=== PATIENT | female | born 1985 | race Caucasian/White ===

== ENCOUNTER 2018-11-01 23:18 | Inpatient (IN) | payer OTHER ==
[~2018-11-01] VITALS: Ht 165.1 cm; Wt 98.0 kg
[2018-11-02] MEDS ORDERED: MORPHINE SULFATE 10 MG/ML CPJ IM ONE (00:15)
[2018-11-02] MEDS ORDERED: KETOROLAC 60MG/2ML VIAL IM ONE (00:15)
[2018-11-02] MEDS ORDERED: HYDROMORPHONE HCL/PF 2MG/ML CPJ IM ONE (02:15)
[2018-11-02] MEDS ORDERED: ONDANSETRON 4MG ODT PO ONE (04:45)
[2018-11-02] MEDS ORDERED: METHOCARBAMOL 750MG TABLET PO SCH (06:00)
[2018-11-02 09:11] LABS: CLARITY URINE CLOUDY (CLEAR); COLOR URINE YELLOW (YELLOW); KETONES URINE NEGATIVE (NEGATIVE); LEUKOCYTE ESTERASE URINE 1+ (NEGATIVE); NITRITE URINE NEGATIVE (NEGATIVE); OCCULT BLOOD URINE 2+ (NEGATIVE); PROTEIN URINE TRACE (NEGATIVE); SPECIFIC GRAVITY URINE 1.026 (1.005-1.030)
[2018-11-02 09:36] LABS: CHLORIDE 107 mEq/L (98-107)
[2018-11-02 09:38] LABS: BASOPHILS % 0.3 % (0.0-2.0); EOSINOPHILS % 0.2 % (0.0-5.0); HEMATOCRIT. 41.5 % (36.0-48.0); HEMOGLOBIN. 13.8 g/dL (12.0-16.0); LYMPHOCYTES % 14.3 % (20.0-50.0); MEAN CORPUSCULAR HEMOGLOBIN 29.2 pg (28.0-32.0); MEAN CORPUSCULAR VOLUME 87.6 fL (81.0-99.0); MONOCYTES % 6.3 % (2.0-8.0); NEUTROPHILS % 78.9 % (40.0-76.0); PLATELET 276 x1000/uL (130-400); RED BLOOD CELL COUNT 4.74 mill/uL (4.2-5.4); RED CELL DISTRIBUTION WIDTH 13.1 % (11.6-14.6)
[2018-11-02 10:29] VITALS: BP 91/60
[2018-11-02] MEDS ORDERED: TRAM50TA3 MT (10:38)
[2018-11-02] MEDS ORDERED: NAPR-681 MT (10:38)
[2018-11-02 12:00] VITALS: BP 101/63
[2018-11-02] MEDS ORDERED: CYCLOBENZAPRINE 10MG TABLET PO PRN (12:15)
[2018-11-02] MEDS ORDERED: CLONIDINE 0.1MG TABLET PO PRN (12:15)
[2018-11-02] MEDS ORDERED: HYDROMORPHONE HCL/PF 2MG/ML CPJ IV PRN (12:15)
[2018-11-02] MEDS ORDERED: ONDANSETRON HCL 4MG/2ML INJ IV PRN (12:30)
[2018-11-02 14:00] VITALS: BP 100/64
[2018-11-02] MEDS: HYDROCODONE/ACETAMINOPHEN 10/325MG TABLET PO PRN (18:13)
[2018-11-02 20:00] VITALS: BP 115/67
[2018-11-03] VITALS: BP 93/58
[2018-11-03 04:00] VITALS: BP 96/56
[2018-11-03 07:54] LABS: BASOPHILS % 0.5 % (0.0-2.0); EOSINOPHILS % 3.7 % (0.0-5.0); HEMATOCRIT. 40.3 % (36.0-48.0); HEMOGLOBIN. 13.3 g/dL (12.0-16.0); LYMPHOCYTES % 36.9 % (20.0-50.0); MEAN CORPUSCULAR VOLUME 87.6 fL (81.0-99.0); MONOCYTES % 8.7 % (2.0-8.0); NEUTROPHILS % 50.2 % (40.0-76.0); PLATELET 273 x1000/uL (130-400)
[2018-11-03 08:00] VITALS: BP 97/57
[2018-11-03 08:09] LABS: CHLORIDE 107 mEq/L (98-107)
[2018-11-03] MEDS: HYDROCODONE/ACETAMINOPHEN 10/325MG TABLET PO PRN ×2 (08:57→22:51)
[2018-11-03 11:23] VITALS: BP 107/67
[2018-11-03 16:00] VITALS: BP 106/57
[2018-11-03] MEDS: DEXAMETHASONE 4MG/ML 1ML VIAL IV SCH (17:38)
[2018-11-03 20:00] VITALS: BP 104/67
[2018-11-03] MEDS ORDERED: LACTULOSE 20G/30ML UDC PO PRN (22:00)
[2018-11-03] MEDS: MAGNESIUM HYDROXIDE 400MG/5ML 30ML UDC PO PRN (22:44)
[2018-11-04] VITALS: BP 95/59
[2018-11-04] MEDS: DEXAMETHASONE 4MG/ML 1ML VIAL IV SCH ×5 (00:55→23:34)
[2018-11-04 04:00] VITALS: BP 101/55
[2018-11-04 08:00] VITALS: BP 93/58
[2018-11-04 12:00] VITALS: BP 105/58
[2018-11-04] MEDS: MAGNESIUM HYDROXIDE 400MG/5ML 30ML UDC PO PRN (13:28)
[2018-11-04] MEDS: HYDROCODONE/ACETAMINOPHEN 10/325MG TABLET PO PRN (13:29)
[2018-11-04 16:00] VITALS: BP 108/59
[2018-11-04 20:00] VITALS: BP 112/63
[2018-11-05] VITALS: BP 102/53
[2018-11-05 04:00] VITALS: BP 98/51
[2018-11-05] MEDS: DEXAMETHASONE 4MG/ML 1ML VIAL IV SCH ×2 (05:54→12:00)
[2018-11-05 08:00] VITALS: BP 105/57
[2018-11-05 08:34] VITALS: BP 105/57
[2018-11-05 12:00] VITALS: BP 103/53
[2018-11-05 15:46] VITALS: BP 119/52
== END 2018-11-05 17:00 | disposition home or self-care (01) | DRG 552 ==
LOC: ER 23:51 → 6EST 11-02 06:43 → EDBEDREQ 11-02 06:51 → ENRESERV 11-02 07:28 → CANBEDREQ 11-02 08:24 → EDBEDREQ 11-02 09:19
PROVIDERS: ADMIT Hospitalist; ATTEND Hospitalist
DX: M51.17 Intervertebral disc disorders with radiculopathy, lumbosacral region (principal); G89.29 Other chronic pain; Z79.899 Other long term (current) drug therapy
CPT/HCPCS: 36415; 71045; 72100; 72148; 96372; 97110; 97116; 97162; 97530; 99285; J1100; J1170; J1885; J2270; J2405; Q0162